=== PATIENT | male | born 1955 ===

== ENCOUNTER 2020-10-21 06:18 | Inpatient (IN) ==
[2020-10-21] MEDS ORDERED: CeFAZolin Syr 2,000MG/20 ML 2,000 MG/20 ML SYRINGE IVPB ONE (06:43)
[2020-10-21] MEDS ORDERED: Ringers Solution, Lactated 1,000 ML IVC SCH (06:45)
[2020-10-21] MEDS ORDERED: Ondansetron 4 MG/2 ML VIAL IVP PRN ×2 (07:45→15:39)
[2020-10-21] MEDS ORDERED: *HR* HYDROmorphone PF 0.5 MG/0.5 ML SYRINGE IVP PRN (07:45)
[2020-10-21] MEDS ORDERED: *HR* OxyCODONE Immed Rel 5 MG TABLET PO PRN (07:45)
[2020-10-21] MEDS ORDERED: *HR* Rocuronium Bromide 50 MG/5 ML VIAL ONE ×3 (07:49→09:32)
[2020-10-21] MEDS ORDERED: *HR* Succinylcholine 200 MG/10 ML VIAL IVP ONE (07:49)
[2020-10-21] MEDS ORDERED: Ondansetron 4 MG/2 ML VIAL ONE (07:49)
[2020-10-21] MEDS ORDERED: Lidocaine -MPF 2% 2 ML VIAL ONE (07:49)
[2020-10-21] MEDS ORDERED: *HR* Propofol 200 MG/20 ML VIAL IVP ONE ×2 (07:50→12:43)
[2020-10-21] MEDS ORDERED: *HR* FentaNYL (PF) 100 MCG/2 ML VIAL ONE ×2 (07:50→09:18)
[2020-10-21] MEDS ORDERED: Bupivacaine-MPF 0.25% 10 ML VIAL ONE (07:51)
[2020-10-21] MEDS ORDERED: Sugammadex Sodium 200 MG/2 ML VIAL IV ONE (10:56)
[2020-10-21] MEDS ORDERED: Naloxone 0.4 MG/ML INJ IVP PRN (15:39)
[2020-10-21] MEDS ORDERED: Ketorolac 15 MG/ML VIAL IVP PRN (15:39)
[2020-10-21] MEDS ORDERED: Simethicone 80 MG TAB.CHEW PO PRN (16:50)
[2020-10-21] MEDS: 0.9 % Sodium Chloride 1,000 ML IVC SCH (17:12)
[2020-10-21] MEDS: CeFAZolin 2 GM/120 ML BAG IVPB SCH (17:12)
[2020-10-21] MEDS ORDERED: *HR* Belladonna Alkaloids/Opium 30 MG RECTAL SUPPOSITORY RC PRN (18:37)
[2020-10-22] MEDS: CeFAZolin 2 GM/120 ML BAG IVPB SCH (00:30)
[2020-10-22] MEDS: 0.9 % Sodium Chloride 1,000 ML IVC SCH ×4 (00:32→15:34)
[2020-10-22 05:00] LABS: Hematocrit 33.4 % (37.5-50.1); Hemoglobin 10.9 g/dL (12.9-16.9); Mean Corpuscular HGB Conc 32.6 g/dL (31.6-35.5); Mean Corpuscular Hemoglobin 29.9 pg (28.0-33.3); Mean Corpuscular Volume 91.5 fL (83.0-100.0); Mean Platelet Volume 11.8 fL (9.4-12.4); Platelet Count 191 K/mcL (140-400); Red Blood Count 3.65 M/mcL (4.19-5.50); Red Cell Distribution Width 12.7 % (11.5-14.5); White Blood Count 11.4 K/mcL (4.3-11.1)
[2020-10-22 05:17] LABS: BUN/Creatinine Ratio 17 (6-26); Blood Urea Nitrogen 17 mg/dL (8-23); Calcium 7.9 mg/dL (8.6-10.3); Carbon Dioxide 24 mEq/L (23-29); Chloride 107 mEq/L (98-107); Glucose 131 mg/dL (70-105); Osmolality,Calculated 287 (280-300); Potassium 4.2 mEq/L (3.5-5.1); Sodium 137 mEq/L (136-145); eGFR For African Americans > 60 (> 60); eGFR For Non-African Americans > 60 (> 60)
[2020-10-22] MEDS ORDERED: *HR* HYDROmorphone PF 0.5 MG/0.5 ML SYRINGE IVP PRN (09:59)
[2020-10-22] MEDS ORDERED: *HR* OxyCODONE Immed Rel 5 MG TABLET PO PRN (09:59)
[2020-10-22] MEDS ORDERED: Ondansetron 4 MG/2 ML VIAL IVP PRN ×2 (09:59→14:45)
[2020-10-22] MEDS ORDERED: Famotidine 20 MG/2 ML VIAL IVP ONE (09:59)
[2020-10-22] MEDS ORDERED: CeFAZolin Syr 2,000MG/20 ML 2,000 MG/20 ML SYRINGE IVPB ONE (10:54)
[2020-10-22] MEDS ORDERED: *HR* Propofol 200 MG/20 ML VIAL IVP ONE (11:13)
[2020-10-22] MEDS ORDERED: *HR* FentaNYL (PF) 100 MCG/2 ML VIAL ONE (11:13)
[2020-10-22] MEDS ORDERED: Acetaminophen IV 1,000 MG/100 ML BAG IVPB ONE ×2 (11:33→13:00)
[2020-10-22] MEDS ORDERED: EPHEDrine 50 MG/ML VIAL ONE (11:36)
[2020-10-22] MEDS ORDERED: Ondansetron 4 MG/2 ML VIAL ONE (11:49)
[2020-10-22] MEDS ORDERED: Lidocaine -MPF 2% 2 ML VIAL ONE (11:49)
[2020-10-22] MEDS ORDERED: *HR* Belladonna Alkaloids/Opium 30 MG RECTAL SUPPOSITORY RC PRN (14:45)
[2020-10-22] MEDS ORDERED: Simethicone 80 MG TAB.CHEW PO PRN (14:45)
[2020-10-22] MEDS ORDERED: Naloxone 0.4 MG/ML INJ IVP PRN (14:45)
[2020-10-23] MEDS: 0.9 % Sodium Chloride 1,000 ML IVC SCH ×2 (00:53→07:42)
[2020-10-23 10:52] LABS: Hematocrit 26.9 % (37.5-50.1); Mean Corpuscular Hemoglobin 29.6 pg (28.0-33.3); Mean Corpuscular Volume 92.4 fL (83.0-100.0); Mean Platelet Volume 12.3 fL (9.4-12.4); Platelet Count 158 K/mcL (140-400); Red Blood Count 2.91 M/mcL (4.19-5.50); White Blood Count 10.6 K/mcL (4.3-11.1)
[2020-10-23 11:15] LABS: Hemoglobin 8.6 g/dL (12.9-16.9)
[2020-10-23 12:37] LABS: BUN/Creatinine Ratio 16 (6-26); Blood Urea Nitrogen 16 mg/dL (8-23); Calcium 7.8 mg/dL (8.6-10.3); Carbon Dioxide 27 mEq/L (23-29); Chloride 106 mEq/L (98-107); Glucose 128 mg/dL (70-105); Osmolality,Calculated 289 (280-300); Sodium 138 mEq/L (136-145); eGFR For African Americans > 60 (> 60); eGFR For Non-African Americans > 60 (> 60)
[2020-10-23] MEDS: Bisacodyl 10 MG RECTAL SUPPOSITORY RC SCH (13:08)
[2020-10-24] MEDS: Bisacodyl 10 MG RECTAL SUPPOSITORY RC SCH (10:14)
[2020-10-24 11:32] VITALS: BP 150/75; PULSE 72; TEMP 98; O2SAT 94
== END 2020-10-24 12:48 | disposition home or self-care (01) | DRG 714 ==
LOC: SAMDAY 06:18 → 2ANU 14:38
PROVIDERS: ADMIT Internal Medicine; ATTEND Urology